=== PATIENT | female | born 1990 | race African-American/Black ===

== ENCOUNTER 2018-09-15 14:45 | Observation (INO) | payer MEDICAID ==
[2018-09-15 17:16] LABS: URINE PH (Dip) POC 6.5 (5.0-8.5)
[2018-09-15 17:16] LABS: URINE BLOOD (Dip) POC Trace-intact (NEGATIVE); URINE GLUCOSE (Dip) POC Negative (NEGATIVE); URINE KETONES (Dip) POC 4+ (NEGATIVE); URINE LEUKOCYTE EST (Dip) POC Negative (NEGATIVE); URINE NITRITE (Dip) POC Positive (NEGATIVE); URINE TOTAL PROTEIN POC 2+ (NEGATIVE)
[2018-09-15] MEDS: KETOROLAC 15 MG INJ IV (17:25)
[2018-09-15] MEDS: ONDANSETRON 4 MG INJ IV (17:25)
[2018-09-15] MEDS: SOD CHLORIDE 0.9% 1,000 ML IV ×3 (17:25→23:13)
[2018-09-15] MEDS: morphine 2 MG INJ IV ×2 (17:25→23:14)
[2018-09-15 17:34] LABS: ADD UMIC YES; UR ASCORBIC ACID NEGATIVE (NEGATIVE); UR BILIRUBIN (Dip) NEGATIVE (NEGATIVE); UR BLOOD (Dip) NEGATIVE (NEGATIVE); UR CLARITY SLIGHTLY CLOUDY (CLEAR); UR COLOR AMBER (YELLOW); UR GLUCOSE (Dip) NEGATIVE (NEGATIVE); UR KETONES (Dip) 2+ mg/dL (NEGATIVE); UR LEUKOCYTE ESTERASE (Dip) NEGATIVE Leu/ul (NEGATIVE); UR MUCUS MANY /HPF (NONE SEEN); UR NITRITE (Dip) NEGATIVE (NEGATIVE); UR RBC 4 /HPF (0-5); UR SPECIFIC GRAVITY (Dip) 1.026 (1.003-1.030); UR SQUAMOUS EPITHELIAL CELL FEW /HPF (FEW); UR TOTAL PROTEIN (Dip) 2+ mg/dl (NEGATIVE); UR UROBILINOGEN (Dip) 2+ mg/dL (NEGATIVE); UR WBC 10 /HPF (0-5)
[2018-09-15 17:38] LABS: ADD MAN DIFF? NO
[2018-09-15 17:40] LABS: ABNORMAL IP MESSAGE 1; HEMATOCRIT 39.9 % (37.0-47.0); HEMOGLOBIN 14.5 g/dl (12.0-16.0); MEAN CORPUSCULAR HEMOGLOBIN 31.5 pg (29.0-33.0); MEAN CORPUSCULAR HGB CONC 36.3 g/dl (32.0-37.0); MEAN CORPUSCULAR VOLUME 86.7 fl (82.0-101.0); MEAN PLATELET VOLUME 11.1 fl (7.4-10.4); PLATELET COUNT 203 10^3/UL (140-415)
[2018-09-15 17:40] LABS: WHITE BLOOD COUNT 21.5 10^3/ul (4.8-10.8)
[2018-09-15 17:48] LABS: POSITIVE DIFF @See below
[2018-09-15 17:58] LABS: ALANINE AMINOTRANSFERASE 47 IU/L (13-69); ALBUMIN 3.2 g/dl (3.3-4.9); ALKALINE PHOSPHATASE 104 IU/L (42-121); ANION GAP 13 (5-13); ASPARTATE AMINO TRANSFERASE 63 IU/L (15-46); BILIRUBIN,INDIRECT 0.8 mg/dl (0-1.1); BILIRUBIN,TOTAL 0.8 mg/dl (0.2-1.3); BLOOD UREA NITROGEN 5 mg/dl (7-20); CALCIUM 8.3 mg/dl (8.4-10.2); CARBON DIOXIDE 31 mmol/L (21-31); CHLORIDE 93 mmol/L (97-110); CREATININE 0.54 mg/dl (0.44-1.00); Estimated GFR > 60 mL/min (>60); GLUCOSE 81 mg/dl (70-220); LIPASE 986 U/L (23-300); POTASSIUM 3.1 mmol/L (3.5-5.1); SODIUM 137 mmol/L (135-144); TOTAL PROTEIN 6.4 g/dl (6.1-8.1)
[2018-09-15 18:23] LABS: ANISOCYTOSIS 1+ (0-0); BAND NEUTROPHILS % (M) 5 % (0-4); HYPOCHROMASIA 2+ (0-0); LYMPHOCYTES #M 0.8 10^3/ul (0.8-2.9); LYMPHOCYTES % (M) 4 % (15-51); MONOCYTE #M 2.1 10^3/ul (0.3-0.9); MONOCYTES % (M) 10 % (0-11); POIKILOCYTOSIS 1+ (0-0); POLYCHROMASIA 1+ (0-0); SCHISTOCYTES 1+ (0-0); SEG NEUT #M 17.6 10^3/ul (1.6-7.5); SEGMENTED NEUTROPHILS (M) % 81 % (39-77); SMUDGE%M 10 % (0-0); TARGET CELLS 1+ (0-0)
[2018-09-15] MEDS: HYDROmorphONE 1 MG/ML SYG IV ×2 (19:30→21:25)
[2018-09-15] MEDS: PIPER-TAZO 3.375 GM IV (PMX) 100 ML IVPB (20:06)
[2018-09-15] MEDS ORDERED: ONDANSETRON 4 MG INJ IV (20:30)
[2018-09-15] MEDS ORDERED: ACETAMINOPHEN 325 MG TAB PO (20:30)
[2018-09-15] MEDS ORDERED: NACL 0.9% 3 ML SYG IV (20:30)
[2018-09-15] MEDS: SODIUM CHLORIDE 0.9% 1L BAG IV* (20:52)
[2018-09-15] MEDS: POTASSIUM CHLORIDE (SR) 20 MEQ TAB PO (20:55)
[2018-09-15 22:45] LABS: LACTIC ACID 0.8 mmol/L (0.5-2.0)
[2018-09-16] MEDS: SOD CHLORIDE 0.9% 1,000 ML IV ×2 (01:05→05:38)
[2018-09-16] MEDS: HYDROmorphONE 1 MG/ML SYG IV ×2 (01:41→05:38)
[2018-09-16 02:31] LABS: LACTIC ACID 0.7 mmol/L (0.5-2.0)
[2018-09-16 05:32] LABS: ADD MAN DIFF? NO
[2018-09-16 05:44] LABS: ABNORMAL IP MESSAGE 1; BASOPHILS % 0.2 % (0.0-2.0); EOSINOPHILS # 0.1 10^3/ul (0.0-0.5); EOSINOPHILS % 0.5 % (0.0-7.0); HEMATOCRIT 30.3 % (37.0-47.0); HEMOGLOBIN 10.7 g/dl (12.0-16.0); LYMPHOCYTES # 1.5 10^3/ul (0.8-2.9); LYMPHOCYTES % 10.9 % (15.0-51.0); MEAN CORPUSCULAR HEMOGLOBIN 31.1 pg (29.0-33.0); MEAN CORPUSCULAR HGB CONC 35.3 g/dl (32.0-37.0); MEAN CORPUSCULAR VOLUME 88.1 fl (82.0-101.0); MEAN PLATELET VOLUME 10.6 fl (7.4-10.4); MONOCYTES % 14.4 % (0.0-11.0); NEUTROPHIL # 10.4 10^3/ul (1.6-7.5); NEUTROPHILS % 73.4 % (39.0-77.0); PLATELET COUNT 168 10^3/UL (140-415); RED BLOOD COUNT 3.44 10^6/ul (4.20-5.40)
[2018-09-16 05:44] LABS: WHITE BLOOD COUNT 14.1 10^3/ul (4.8-10.8)
[2018-09-16 05:48] LABS: POSITIVE DIFF @See below
[2018-09-16 06:02] LABS: HEMOGLOBIN A1C 4.8 % (0-5.9)
[2018-09-16 06:04] LABS: ALANINE AMINOTRANSFERASE 36 IU/L (13-69); ALBUMIN 2.3 g/dl (3.3-4.9); ALKALINE PHOSPHATASE 69 IU/L (42-121); ANION GAP 8 (5-13); ASPARTATE AMINO TRANSFERASE 42 IU/L (15-46); BILIRUBIN,INDIRECT 0.4 mg/dl (0-1.1); BILIRUBIN,TOTAL 0.4 mg/dl (0.2-1.3); BLOOD UREA NITROGEN 6 mg/dl (7-20); CALCIUM 7.1 mg/dl (8.4-10.2); CARBON DIOXIDE 24 mmol/L (21-31); CHLORIDE 104 mmol/L (97-110); CHOL/HDL RATIO 3.2 RATIO; CHOLESTEROL 75 mg/dl (100-200); CREATININE 0.57 mg/dl (0.44-1.00); Estimated GFR > 60 mL/min (>60); GLUCOSE 66 mg/dl (70-220); HDL CHOLESTEROL 23 mg/dl (33-83); LDL CHOLESTEROL,CALCULATED 40 mg/dl; MAGNESIUM 1.3 mg/dl (1.7-2.5); POTASSIUM 3.2 mmol/L (3.5-5.1); SODIUM 136 mmol/L (135-144); TOTAL PROTEIN 4.6 g/dl (6.1-8.1); TRIGLYCERIDES 61 mg/dl (0-149)
[2018-09-16 06:18] LABS: ETHANOL < 10.0 mg/dl (0-0)
[2018-09-16] MEDS: morphine 2 MG INJ IV (08:01)
[2018-09-16] MEDS: CIPROFLOXACIN 400MG/D5W 200 ML IVPB (08:16)
== END 2018-09-16 09:45 | disposition left against medical advice (07) ==
LOC: FTE 14:45 → PP2 19:58
PROVIDERS: Family Medicine
DX: K85.20 Alcohol induced acute pancreatitis without necrosis or infection (principal); F10.10 Alcohol abuse, uncomplicated; Z91.19 Patient's noncompliance with other medical treatment and regimen; N39.0 Urinary tract infection, site not specified; D72.829 Elevated white blood cell count, unspecified; E87.6 Hypokalemia
CPT/HCPCS: 36415; 74176; 76705; 80053; 80061; 80307; 81001; 81003; 81025; 83036; 83605; 83690; 83735; 84443; 85025; 87040; 87086; 96374; 96375; 99285-25; G0378